=== PATIENT | female | born 1975 | race Caucasian/White ===

== ENCOUNTER 2018-09-27 11:01 | Emergency (ER) | payer OTHER ==
--- NOTE | 2018-09-27 11:27 | ERPHSYRPT ---
- History of Present Illness Time Seen by Provider: 09/27/18 11:22 Source: patient, family Exam Limitations: no limitations Physician History: The patient is a 42-year-old female with her complaining of worsening swelling and pain in her right upper and lower eyelids since Thursday morning or 3 days ago. She denies fever or chills. Her upper eyelid is severely swollen today and tender. She is no longer able to open her eyelid so she can see out of her right eye. She denies any trauma. She does note that there was a small sore on the medial aspect of her right upper eyelid on Thursday. She wears glasses for driving. There is been no discharge or matting of her eyes. The swelling is now progressed into her right cheek and nose. Her past medical history is significant for arthritis and seizure disorder. Timing/Duration: day(s) (3), gradual onset, worse Location: right eye (right eye lids) Severity: severe Apparent Injury: no Associated Symptoms: pain (to eye lids, no eye ball), eyelid swelling, No redness, No matting Visual Assistive Devices: Glasses (for driving) Allergies/Adverse Reactions: lamotrigine [From Lamictal] Allergy (Verified 09/27/18 11:29) Home Medications: Gabapentin 800 mg PO TID 06/28/15 [History] Levetiracetam [Keppra] 1,500 mg PO BID 06/28/15 [History] Meloxicam 15 mg [Meloxicam 15 MG] 15 mg PO DAILY 06/28/15 [History] Propranolol HCl [Propranolol HCl ER] 80 mg PO DAILY 06/28/15 [History] Tizanidine HCl [Zanaflex] 4 mg PO TID PRN 06/28/15 [History] Fentanyl 25Mcg Patch [Duragesic 25MCG Patch] 25 mcg TOP Q3D 11/05/17 [ History] Oxycodone HCl 10 mg PO BID PRN 11/05/17 [History] Duloxetine HCl 120 mg PO DAILY 09/27/18 [History] Eslicarbazepine Acetate [Aptiom] 800 mg PO BID 09/27/18 [History] Frovatriptan Succinate 2.5 mg PO BID PRN 09/27/18 [History] Lisdexamfetamine Dimesylate [Vyvanse] 70 mg PO DAILY 09/27/18 [History] Zonisamide 300 mg PO DAILY 09/27/18 [History] Hx Tetanus, Diphtheria Vaccination/Date Given: No Hx Influenza Vaccination/Date Given: No Hx Pneumococcal Vaccination/Date Given: No - Review of Systems Constitutional: No Fever, No Chills Eyes: Other (swelling of eye lids) Ears, Nose, & Throat: No Symptoms Respiratory: No Cough, No Dyspnea Cardiac: No Chest Pain, No Edema, No Syncope Abdominal/Gastrointestinal: No Abdominal Pain, No Nausea, No Vomiting, No Diarrhea Genitourinary Symptoms: No Dysuria Musculoskeletal: No Back Pain, No Neck Pain Skin: No Rash Neurological: No Dizziness, No Focal Weakness, No Sensory Changes Psychological: No Symptoms Endocrine: No Symptoms Hematologic/Lymphatic: No Symptoms Immunological/Allergic: No Symptoms All Other Systems: Reviewed and Negative - Past Medical History Pertinent Past Medical History: Yes Neurological History: Migraines, Seizures ENT History: No Pertinent History Cardiac History: No Pertinent History Respiratory History: No Pertinent History Endocrine Medical History: No Pertinent History Musculoskeletal History: Arthritis, Degenerative Disk Disease, Other GI Medical History: No Pertinent History History: Other Psycho-Social History: Anxiety, Depression Female Reproductive Disorders: Other Other Medical History: current UTI. Chronic low back pain. no femal reproductive problems since Hysterectomy - Past Surgical History Past Surgical History: Yes Neuro Surgical History: No Pertinent History Cardiac: No Pertinent History Respiratory: No Pertinent History Gastrointestinal: Other Genitourinary: No Pertinent History Musculoskeletal: No Pertinent History Female Surgical History: Section, Hysterectomy Other Surgical History: CARPEL TUNNEL ON RIGHT HAND, FEMALE SURGERIES. gastric bi-pass. - Social History Smoking Status: Never smoker Exposure to second hand smoke: No Drug Use: none Patient Lives Alone: No - Nursing Vital Signs Nursing Vital Signs: Initial Vital Signs Temperature 99.5 F 09/27/18 11:04 Pulse Rate 66 09/27/18 11:04 Blood Pressure 121/62 09/27/18 11:04 O2 Sat by Pulse Oximetry 95 09/27/18 11:04 Pain Scale Pain Intensity 4 - Physical Exam General Appearance: mild distress Eye Exam: right eye: eyelid inflammation (both upper and lower eyelids are warm , very tender, and severely swollen.), other (pt unable to open right eye lid without using her fingers to physically move her upper eyelid. Vision is not blurred when eye lid is opened minimally.), left eye: normal inspection, PERRL, EOMI Ears, Nose, Throat Exam: normal ENT inspection Neck Exam: normal inspection Respiratory Exam: normal breath sounds Cardiovascular Exam: regular rate/rhythm Gastrointestinal Exam: soft Extremity Exam: normal inspection Neurologic: alert Skin Exam: normal color SpO2 Interpretation: normal Oxygen Delivery: Room Air - CT Exams Maxillofacial Bones CT Interpretation: Tele-radiologist Report (per Dr Cuenca), Other (right periorbital soft tussue swelling without suspicious solid/cystic soft tissue mass, fluid collection, or subcutaneous air bubbles.) Ordered Tests: Active Orders 24 hr Category Date Time Status IV Insertion STAT Care 09/27/18 11:31 Active FACIAL BONES WITH CONTRAST [CT] Stat Exams 09/27/18 11:33 Completed BMP Stat Lab 09/27/18 11:43 Completed CBC W DIFF Stat Lab 09/27/18 11:43 Completed Lactic Acid Stat Lab 09/27/18 11:42 Completed Medication Summary Discontinued Medications Generic Name Dose Route Start Last Admin Trade Name Freq PRN Reason Stop Dose Admin Diphenhydramine HCl 25 mg 09/27/18 11:31 09/27/18 12:21 Benadryl 50 Mg/Ml IV 09/27/18 11:32 25 mg STAT ONE Administration Diphenhydramine HCl Confirm 09/27/18 12:07 Benadryl 50 Mg/Ml Administered 09/27/18 12:08 Dose 50 mg .ROUTE .STK-MED ONE Ceftriaxone Sodium/Dextrose 1 g in 50 mls @ 100 mls/hr 09/27/18 11:33 12:21 Rocephin 1 Gm-D5w 50 Ml Bag IV 09/27/18 12:02 100 mls/hr STAT STA 100 mls/hr Administration Ceftriaxone Sodium/Dextrose Confirm 09/27/18 12:07 Rocephin 1 Gm-D5w 50 Ml Bag Administered 09/27/18 12:08 Dose 1 g in 50 mls @ ud IV .STK-MED ONE Morphine Sulfate 4 mg 09/27/18 11:31 09/27/18 12:21 Morphine Sulfate 4 Mg Inj IV 09/27/18 11:32 4 mg STAT ONE Administration Morphine Sulfate Confirm 09/27/18 12:07 Morphine Sulfate 4 Mg Inj Administered 09/27/18 12:08 Dose 4 mg .ROUTE .STK-MED ONE Ondansetron HCl 4 mg 09/27/18 11:32 09/27/18 12:22 Zofran 4 Mg/2 Ml Vial IV 09/27/18 11:33 4 mg STAT ONE Administration Ondansetron HCl Confirm 09/27/18 12:07 Zofran 4 Mg/2 Ml Vial Administered 09/27/18 12:08 Dose 4 mg .ROUTE .STK-MED ONE Lab/Rad Data: Laboratory Result Diagrams 09/27/18 11:43 09/27/18 11:43 Laboratory Results 09/27/18 09/27/18 09/27/18 Range/Units 11:43 11:43 11:42 WBC 8.0 (4.0-10.5) K/mm3 RBC 3.96 L (4.1-5.4) M/mm3 Hgb 12.1 (12.0-16.0) gm/dl Hct 36.5 (35-47) % MCV 92.2 (78-100) fl MCH 30.5 (26-32) pg MCHC 33.2 (32-36) g/dl RDW 13.2 (11.5-14.0) % Plt Count 371 (150-450) K/mm3 MPV 8.8 (6-9.5) fl Gran % 70.5 H (36.0-66.0) % Eos # (Auto) 0.09 (0-0.5) Absolute Lymphs (auto) 1.66 (1.0-4.6) Absolute Monos (auto) 0.59 (0.0-1.3) Lymphocytes % 20.9 L (24.0-44.0) % Monocytes % 7.4 (0.0-12.0) % Eosinophils % 1.1 (0.00-5.0) % Basophils % 0.1 (0.0-0.4) % Absolute Granulocytes 5.60 (1.4-6.9) Basophils # 0.01 (0-0.4) Sodium 138 (137-145) mmol/L Potassium 4.1 (3.5-5.1) mmol/L Chloride 99 (98-107) mmol/L Carbon Dioxide 30 (22-30) mmol/L Anion Gap 13.6 (5-15) MEQ/L BUN 10 (7-17) mg/dL Creatinine 0.72 (0.52-1.04) mg/dL Estimated GFR > 60.0 ML/MIN Glucose 133 H (74-106) mg/dL Lactic Acid 1.2 (0.4-2.0) Calcium 9.4 (8.4-10.2) mg/dL - Progress Progress: improved Progress Note: 09/27/18 12:[address] Shan Dudley, ophthamologist, at [facility] accepts pt for trransfer and evaluation. Counseled pt/family regarding: lab results, diagnosis, need for follow-up, rad results - Departure Time of Disposition: 12:50 Departure Disposition: Home Clinical Impression: Periorbital cellulitis of right eye Condition: Stable Critical Care Time: No Referrals: LINDA LYON [Primary Care Provider] - Additional Instructions: You have periorbital cellulitis of the right eye. You were given Benadryl 25 mg , morphine 4 mg, Zofran 4 mg, and Rocephin 1 g by IV in the ER. You are to see Dr. Shan Dudley at [address] [place] [address] [facility] in [place] immediately after being discharged from the [facility].
[2018-09-27] MEDS ORDERED: MORPHINE SULFATE 4 MG INJ IV ONE (11:31)
[2018-09-27] MEDS ORDERED: BENADRYL 50 MG/ML IV ONE (11:31)
[2018-09-27] MEDS ORDERED: Zofran 4 MG/2 ML VIAL IV ONE (11:32)
[2018-09-27] MEDS ORDERED: ROCEPHIN 1 Gm-D5w 50 ml Bag** 1 G/50 ML IVPB IV STA (11:33)
[2018-09-27 11:46] LABS: BASOPHIL % 0.1 % (0.0-0.4); Basophil (Absolute #) 0.01 (0-0.4); Eosinophil % 1.1 % (0.00-5.0); Eosinophil (Absolute #) 0.09 (0-0.5); Granulocytes % 70.5 % (36.0-66.0); Hematocrit 36.5 % (35-47); Hemoglobin 12.1 gm/dl (12.0-16.0); Lymphocyte (Absolute #) 1.66 (1.0-4.6); Lymphocytes % 20.9 % (24.0-44.0); Mean Cell Volume 92.2 fl (78-100); Mean Corpuscular Hgb Concent. 33.2 g/dl (32-36); Mean Platelet Volume 8.8 fl (6-9.5); Monocyte (Absolute #) 0.59 (0.0-1.3); Monocytes % 7.4 % (0.0-12.0); Platelet Count 371 K/mm3 (150-450); Red Blood Count 3.96 M/mm3 (4.1-5.4); Red Cell Distribution Width 13.2 % (11.5-14.0)
[2018-09-27 11:52] LABS: Mean Corpuscular Hemoglobin 30.5 pg (26-32)
[2018-09-27 12:02] LABS: ANION GAP 13.6 MEQ/L (5-15); BLOOD UREA NITROGEN 10 mg/dL (7-17); CHLORIDE 99 mmol/L (98-107); Calcium 9.4 mg/dL (8.4-10.2); Carbon Dioxide 30 mmol/L (22-30); Creatinine 1 0.72 mg/dL (0.52-1.04); Glucose 133 mg/dL (74-106); Potassium 4.1 mmol/L (3.5-5.1); SODIUM 138 mmol/L (137-145)
[2018-09-27] MEDS ORDERED: BENADRYL 50 MG/ML ONE (12:07)
[2018-09-27] MEDS ORDERED: Zofran 4 MG/2 ML VIAL ONE (12:07)
[2018-09-27] MEDS ORDERED: MORPHINE SULFATE 4 MG INJ ONE (12:07)
[2018-09-27] MEDS ORDERED: ROCEPHIN 1 Gm-D5w 50 ml Bag** 1 G/50 ML IVPB IV ONE (12:07)
--- NOTE | 2018-09-27 12:14 | XRAY ---
Indication: Right eye swelling. Multiple contiguous axial images obtained through the facial bones using 80 cc Isovue 370 contrast. Comparison: None A few left-sided dental amalgams produces beam artifact. There is moderate right periorbital soft tissue swelling without suspicious solid/cystic soft tissue mass, fluid collection, or subcutaneous air bubbles. No acute fracture, suspicious bony lesions, osseous destructive process, or radiopaque foreign body. Orbits including orbital roof, lares, and floors intact. Paranasal sinuses and nasal passages are clear. Mild nasal septal deviation to the right. Parotid gland and submandibular glands bilaterally symmetric. A few centimeter/subcentimeter submandibular lymph nodes bilaterally. No pathologic lymphadenopathy. Remaining surrounding soft tissues and base of the brain unremarkable. Impression: 1. Right periorbital soft tissue swelling presumed inflammatory/infectious. 2. Remaining CT facial bones with contrast exam negative. CTDI 59.47
[2018-09-27 13:08] VITALS: BP 116/58; PULSE 58; O2SAT 97
== END 2018-09-27 13:09 | disposition home or self-care (01) ==
LOC: ED 11:01
DX: L03.213 Periorbital cellulitis (principal); Z79.899 Other long term (current) drug therapy
CPT/HCPCS: 36000; 36415; 70487; 80048; 83605; 85025; 96365; 96374; 96375; 99284; J0696; J1200; J2270; J2405

== ENCOUNTER 2019-12-07 12:49 | Emergency (ER) | payer OTHER ==
[2019-12-07] MEDS ORDERED: Sodium Chloride 0.9% 1000 ML 1,000 ML IV STA (13:23)
--- NOTE | 2019-12-07 13:34 | ERPHSYRPT ---
- History of Present Illness Time Seen by Provider: 12/07/19 13:22 Source: patient Exam Limitations: no limitations Patient Subjective Stated Complaint: seizure Physician History: Patient is a 44-year-old female presents to our ED with complaints of progressively increasing seizures. Patient followed up with her neurologist last week. An EEG was performed. Since her visit with her neurologist she has had 2 additional seizures. Patient states she feels as though time was going backwards. She experienced tingling of her cheeks and her fingertips. The seizure was not witnessed. No tongue biting or injury to tongue observed. No incontinence. Symptoms are intermittent. No specific worsening or improving factors. Of note while performing our physical exam patient was noted to be bradycardic on the supervisor wrapping room at a rate of 47. Beats per minute. Patient is on a beta-ivelisse. Patient states that she has been losing weight intentionally. There is a possibility that the beta-ivelisse dose may need to be adjusted. Timing/Duration: today Severity: moderate Character of Deficits: altered sensation Deficits: no difficulties Baseline/Normal Cognition: alert oriented x 3 Current Cognition: alert oriented x 3 Associated Symptoms: confusion, numbness/tingling in legs/feet, paresthesia, No nausea, No vomiting, No weakness, No insomnia, No muscle spasms, No headache, No other Allergies/Adverse Reactions: lamotrigine [From Lamictal] Allergy (Verified 12/07/19 13:27) Home Medications: Gabapentin 800 mg PO TID 06/28/15 [History] Levetiracetam [Keppra] 1,000 mg PO TID 06/28/15 [History] Meloxicam 15 mg [Meloxicam 15 MG] 15 mg PO DAILY 06/28/15 [History] Propranolol HCl [Propranolol HCl ER] 120 mg PO DAILY 06/28/15 [History] Eslicarbazepine Acetate [Aptiom] 800 mg PO BID 09/27/18 [History] Baclofen 20 mg PO TID 12/07/19 [History] Buprenorphine HCl [Belbuca] 450 mg PO BID 12/07/19 [History] Desvenlafaxine Succinate [Pristiq ER] 50 mg PO DAILY 12/07/19 [History] Dexmethylphenidate HCl [Dexmethylphenidate HCl ER] 40 mg PO DAILY 12/07/19 [ History] Dexmethylphenidate HCl [Focalin] 15 mg PO DAILY 12/07/19 [History] Ergocalciferol (Vitamin D2) [Vitamin D2] 50,000 units PO WEEKLY 12/07/19 [ History] Hydrocodone Bit/Acetaminophen [Hydrocodon-Acetaminophn 10-325] 1 each PO UD PRN 12/07/19 [History] Levothyroxine Sodium [Euthyrox] 25 mcg PO DAILY 12/07/19 [History] Naratriptan HCl [Amerge] 2.5 mg PO UD PRN 12/07/19 [History] Hx Tetanus, Diphtheria Vaccination/Date Given: No Hx Influenza Vaccination/Date Given: No Hx Pneumococcal Vaccination/Date Given: No - Review of Systems Constitutional: No Fever, No Chills Eyes: No Symptoms Ears, Nose, & Throat: No Symptoms Respiratory: No Symptoms, No Cough, No Dyspnea Cardiac: No Chest Pain, No Edema, No Syncope Abdominal/Gastrointestinal: No Symptoms, No Abdominal Pain, No Nausea, No Vomiting, No Diarrhea Genitourinary Symptoms: No Symptoms, No Dysuria Musculoskeletal: No Symptoms, No Back Pain, No Neck Pain Skin: No Symptoms, No Rash Neurological: Seizure, No Dizziness, No Focal Weakness, No Paralysis, No Sensory Changes, No Vertigo Psychological: No Symptoms Endocrine: No Symptoms All Other Systems: Reviewed and Negative - Past Medical History Pertinent Past Medical History: Yes Neurological History: Migraines, Seizures ENT History: No Pertinent History Cardiac History: No Pertinent History Respiratory History: No Pertinent History Endocrine Medical History: No Pertinent History Musculoskeletal History: Arthritis, Degenerative Disk Disease, Other GI Medical History: No Pertinent History History: Other Psycho-Social History: Anxiety, Depression Female Reproductive Disorders: Other Other Medical History: current UTI. Chronic low back pain. no femal reproductive problems since Hysterectomy - Past Surgical History Past Surgical History: Yes Neuro Surgical History: No Pertinent History Cardiac: No Pertinent History Respiratory: No Pertinent History Gastrointestinal: Other Genitourinary: No Pertinent History Musculoskeletal: No Pertinent History Female Surgical History: Section, Hysterectomy Other Surgical History: CARPEL TUNNEL ON RIGHT HAND, FEMALE SURGERIES. gastric bi-pass. - Social History Smoking Status: Never smoker Exposure to second hand smoke: No Drug Use: none Patient Lives Alone: No - Nursing Vital Signs Nursing Vital Signs: Initial Vital Signs Temperature 97.9 F 12/07/19 13:06 Pulse Rate 53 L 12/07/19 13:06 Respiratory Rate 12 12/07/19 13:06 Blood Pressure 107/69 12/07/19 13:06 O2 Sat by Pulse Oximetry 100 12/07/19 13:06 Pain Scale Pain Intensity 0 - [place] Coma Scale Best Eye Response ([place]): (4) open spontaneously Best Verbal Response ([place]): (5) oriented Best Motor Response ([place]): (6) obeys commands [place] Total: 15 - Physical Exam General Appearance: no apparent distress, alert Eye Exam: bilateral eye: PERRL, EOMI Ears, Nose, Throat Exam: normal ENT inspection, moist mucous membranes Neck Exam: normal inspection, non-tender, supple Respiratory: normal breath sounds, lungs clear, airway intact, No respiratory distress Cardiovascular: regular rate/rhythm, No edema Gastrointestinal: soft, No tenderness, No distention Back Exam: normal inspection Extremity Exam: normal inspection, No pedal edema Mental Status: alert, oriented x 3 folder seamer automatic Exam: normal hearing, normal speech, PERRL, tongue midline, No abnormal eye position Coordination/Gait: normal finger to nose, normal gait Motor/Sensory: No no motor deficit, No no sensory deficit, No no pronator drift , No negative Babinski's sign, No weak motor strength RUE Skin Exam: normal color, warm, dry, No rash SpO2 Interpretation: normal SpO2: 99 O2 Delivery: Room Air - Course Nursing assessment & vital signs reviewed: Yes EKG Interpreted by Me: RATE, Sinus Rhythm, Sinus [place], NORMAL AXIS, NORMAL INTERVALS - CT Exams Head CT Interpretation: Negative, Tele-radiologist Report Ordered Tests: Active Orders 24 hr Category Date Time Status Accucheck STAT Care 12/07/19 13:23 Active Label Maker STAT Care 12/07/19 13:25 Active Clean Catch Urine Specimen STAT Care 12/07/19 13:23 Active EKG-ER Only STAT Care 12/07/19 13:23 Active IV Insertion STAT Care 12/07/19 13:23 Active Pulse Oximetry (ED) STAT Care 12/07/19 13:23 Active Seizure Precautions -SCCHED STAT Care 12/07/19 13:23 Active HEAD WITHOUT CONTRAST [CT] Stat Exams 12/07/19 13:24 Completed CBC W DIFF Stat Lab 12/07/19 Completed CMP Stat Lab 12/07/19 13:23 Completed CULTURE,URINE Stat Lab 12/07/19 14:15 Received CULTURE,URINE Stat Lab 12/07/19 14:15 Received HCG,QUALITATIVE URINE Stat Lab 12/07/19 14:15 Completed MAGNESIUM Stat Lab 12/07/19 13:23 Completed UA W/RFX UR CULTURE Stat Lab 12/07/19 14:15 Completed Urine Triage Profile Stat Lab 12/07/19 14:15 Completed Medication Summary Discontinued Medications Generic Name Dose Route Start Last Admin Trade Name Bayronq PRN Reason Stop Dose Admin Sodium Chloride 1,000 mls @ 999 mls/hr 12/07/19 13:23 12/07/19 14:03 Sodium Chloride 0.9% 1000 Ml IV 12/07/19 14:23 999 mls/hr .Q1H1M STA Administration Sodium Chloride Confirm 12/07/19 14:02 Sodium Chloride 0.9% 1000 Ml Administered 12/07/19 14:03 Dose 1,000 mls @ ud .ROUTE .STK-MED ONE Lab/Rad Data: Laboratory Result Diagrams 12/07/19 Unknown 12/07/19 13:23 Laboratory Results 12/07/19 12/07/19 12/07/19 Range/Units Unknown 14:15 14:15 WBC 9.1 (4.0-10.5) K/mm3 RBC 4.33 (4.1-5.4) M/mm3 Hgb 12.9 (12.0-16.0) gm/dl Hct 39.2 (35-47) % MCV 90.5 (78-100) fl MCH 29.8 (26-32) pg MCHC 32.9 (32-36) g/dl RDW 13.7 (11.5-14.0) % Plt Count 396 (150-450) K/mm3 MPV 8.9 (7.5-11.0) fl Gran % 73.1 H (36.0-66.0) % Eos # (Auto) 0.27 (0-0.5) Absolute Lymphs (auto) 1.66 (1.0-4.6) Absolute Monos (auto) 0.48 (0.0-1.3) Lymphocytes % 18.3 L (24.0-44.0) % Monocytes % 5.3 (0.0-12.0) % Eosinophils % 3.0 (0.00-5.0) % Basophils % 0.3 (0.0-0.4) % Absolute Granulocytes 6.64 (1.4-6.9) Basophils # 0.03 (0-0.4) Sodium (137-145) mmol/L Potassium (3.5-5.1) mmol/L Chloride (98-107) mmol/L Carbon Dioxide (22-30) mmol/L Anion Gap (5-15) MEQ/L BUN (7-17) mg/dL Creatinine (0.52-1.04) mg/dL Estimated GFR ML/MIN Glucose (74-106) mg/dL Calcium (8.4-10.2) mg/dL Magnesium (1.6-2.3) mg/dL Total Bilirubin (0.2-1.3) mg/dL AST (14-36) U/L ALT (0-35) U/L Alkaline Phosphatase (38-126) U/L Serum Total Protein (6.3-8.2) g/dL Albumin (3.5-5.0) g/dL Urine Color YELLOW (YELLOW) Urine Appearance CLOUDY (CLEAR) Urine pH 5.0 (5-6) Ur Specific [place] 1.039 (1.005-1.025) Urine Protein 30 (Negative) Urine Ketones TRACE (NEGATIVE) Urine Blood NEGATIVE (0-5) Rick/ul Urine Nitrite NEGATIVE (NEGATIVE) Urine Bilirubin NEGATIVE (NEGATIVE) Urine Urobilinogen NEGATIVE (0-1) mg/dL Ur Leukocyte Esterase LARGE (NEGATIVE) Urine WBC (Auto) 26-50 (0-5) /HPF Urine RBC (Auto) 6-10 (0-2) /HPF U Hyaline Cast (Auto) 3-5 (0-2) /LPF U Epithel Cells (Auto) RARE (FEW) /HPF Urine Bacteria (Auto) RARE (NEGATIVE) /HPF U Non-Squamous Epi Cells RARE (FEW) /HPF Calcium Oxalate Crystal 51-99 (NEGATIVE) /HPF Urine Mucus (Auto) SLIGHT (NEGATIVE) /HPF Urine Culture Reflexed YES (NO) Urine Glucose NEGATIVE (NEGATIVE) mg/dL Urine HCG, Qual (Negative) Urine Opiates Level NEGATIVE (NEGATIVE) Ur Methadone NEGATIVE (NEGATIVE) Urine Barbiturates NEGATIVE (NEGATIVE) Ur Phencyclidine (PCP) NEGATIVE (NEGATIVE) Urine Amphetamine POSITIVE (NEGATIVE) U Benzodiazepine Level NEGATIVE (NEGATIVE) Urine Cocaine NEGATIVE (NEGATIVE) Urine Marijuana (THC) NEGATIVE (NEGATIVE) 12/07/19 12/07/19 Range/Units 14:15 13:23 WBC (4.0-10.5) K/mm3 RBC (4.1-5.4) M/mm3 Hgb (12.0-16.0) gm/dl Hct (35-47) % MCV (78-100) fl MCH (26-32) pg MCHC (32-36) g/dl RDW (11.5-14.0) % Plt Count (150-450) K/mm3 MPV (7.5-11.0) fl Gran % (36.0-66.0) % Eos # (Auto) (0-0.5) Absolute Lymphs (auto) (1.0-4.6) Absolute Monos (auto) (0.0-1.3) Lymphocytes % (24.0-44.0) % Monocytes % (0.0-12.0) % Eosinophils % (0.00-5.0) % Basophils % (0.0-0.4) % Absolute Granulocytes (1.4-6.9) Basophils # (0-0.4) Sodium 137 (137-145) mmol/L Potassium 4.1 (3.5-5.1) mmol/L Chloride 101 (98-107) mmol/L Carbon Dioxide 27 (22-30) mmol/L Anion Gap 13.6 (5-15) MEQ/L BUN 13 (7-17) mg/dL Creatinine 0.67 (0.52-1.04) mg/dL Estimated GFR > 60.0 ML/MIN Glucose 80 (74-106) mg/dL Calcium 9.0 (8.4-10.2) mg/dL Magnesium 2.0 (1.6-2.3) mg/dL Total Bilirubin 0.20 (0.2-1.3) mg/dL AST 26 (14-36) U/L ALT 26 (0-35) U/L Alkaline Phosphatase 133 H (38-126) U/L Serum Total Protein 7.5 (6.3-8.2) g/dL Albumin 4.4 (3.5-5.0) g/dL Urine Color (YELLOW) Urine Appearance (CLEAR) Urine pH (5-6) Ur Specific [place] (1.005-1.025) Urine Protein (Negative) Urine Ketones (NEGATIVE) Urine Blood (0-5) Rick/ul Urine Nitrite (NEGATIVE) Urine Bilirubin (NEGATIVE) Urine Urobilinogen (0-1) mg/dL Ur Leukocyte Esterase (NEGATIVE) Urine WBC (Auto) (0-5) /HPF Urine RBC (Auto) (0-2) /HPF U Hyaline Cast (Auto) (0-2) /LPF U Epithel Cells (Auto) (FEW) /HPF Urine Bacteria (Auto) (NEGATIVE) /HPF U Non-Squamous Epi Cells (FEW) /HPF Calcium Oxalate Crystal (NEGATIVE) /HPF Urine Mucus (Auto) (NEGATIVE) /HPF Urine Culture Reflexed (NO) Urine Glucose (NEGATIVE) mg/dL Urine HCG, Qual NEGATIVE (Negative) Urine Opiates Level (NEGATIVE) Ur Methadone (NEGATIVE) Urine Barbiturates (NEGATIVE) Ur Phencyclidine (PCP) (NEGATIVE) Urine Amphetamine (NEGATIVE) U Benzodiazepine Level (NEGATIVE) Urine Cocaine (NEGATIVE) Urine Marijuana (THC) (NEGATIVE) - Progress Progress: improved Discussed with Dr.: Other (Case discussed with Dr. Hilaria Barger, patients neurologist. He advises treating the UTI as this could potentially decrease seizure threshold. Patient is also on propranolol which may be contributing to her bradycardia. We will decrease her propranolol from 120 mg daily to 80 mg daily. Patient advised of this change. She will make that change accordingly. Patient is on an amphetamine-like medication. He will see patient on an outpatient basis and make medication adjustments.) Will see patient in: office Counseled pt/family regarding: drug and/or alcohol abuse, lab results, diagnosis , need for follow-up, rad results - Departure Departure Disposition: Home Clinical Impression: Bradycardia, Seizure, UTI (urinary tract infection) Condition: Good Critical Care Time: No Referrals: LINDA LYON [Primary Care Provider] - Additional Instructions: Decrease your propranolol dose from 120 mg daily to [address] Barger Discharge/Care Plan ELVIRA VACA was seen on 12/07/19 in the Emergency Room. The patient was counseled regarding Diagnosis,Lab results, Imaging studies, need for follow up and when to return to the Emergency Room. Prescriptions given: Discharge Note I have spoken with the patient and/or caregivers. I have explained the patient' s condition, diagnosis and treatment plan based on the information available to me at this time. I have answered the patient's and/or caregiver's questions and addressed any concerns. The patient and/or caregivers have as good understanding of the patient's diagnosis, condition and treatment plan as can be expected at this point. The vital signs have been stable. The patient's condition is stable and appropriate for discharge from the emergency department. The patient will pursue further outpatient evaluation with the primary care physician or other designated or consulting physician as outlined in the discharge instructions. The patient and/or caregivers are agreeable to this plan of care and follow-up instructions have been explained in detail. The patient and/or caregivers have received these instruction. The patient/and or caregivers are aware that any significant change in condition or worsening of symptoms should prompt an immediate return to this or the closest emergency department or call 911. Prescriptions: Cephalexin Mh 500 mg [Keflex 500 mg] 500 mg PO BID 7 Days #14 capsule
[2019-12-07] MEDS ORDERED: Sodium Chloride 0.9% 1000 ML 1,000 ML ONE (14:02)
--- NOTE | 2019-12-07 14:04 | XRAY ---
Indication: Seizures. History seizures since 2013. Multiple contiguous axial images obtained through the head without contrast. Comparison: None Normal appearing brain parenchyma, ventricles, and bony calvarium. Visualized paranasal sinuses and mastoid air cells are clear. Impression: Normal CT head without contrast exam.
[2019-12-07 14:28] LABS: Absolute Neutrophil Ct (ANC) 6.64 (1.4-6.9); BASOPHIL % 0.3 % (0.0-0.4); Basophil (Absolute #) 0.03 (0-0.4); Eosinophil (Absolute #) 0.27 (0-0.5); Hematocrit 39.2 % (35-47); Hemoglobin 12.9 gm/dl (12.0-16.0); Lymphocyte (Absolute #) 1.66 (1.0-4.6); Lymphocytes % 18.3 % (24.0-44.0); Mean Cell Volume 90.5 fl (78-100); Mean Corpuscular Hemoglobin 29.8 pg (26-32); Mean Corpuscular Hgb Concent. 32.9 g/dl (32-36); Mean Platelet Volume 8.9 fl (7.5-11.0); Monocyte (Absolute #) 0.48 (0.0-1.3); Monocytes % 5.3 % (0.0-12.0); Neutrophil % 73.1 % (36.0-66.0); Platelet Count 396 K/mm3 (150-450); Red Blood Count 4.33 M/mm3 (4.1-5.4); Red Cell Distribution Width 13.7 % (11.5-14.0); White Blood Count 9.1 K/mm3 (4.0-10.5)
[2019-12-07 14:38] VITALS: BP 118/59; PULSE 52
[2019-12-07 14:40] LABS: ALBUMIN 4.4 g/dL (3.5-5.0); ALKALINE PHOSPHATASE 133 U/L (38-126); ANION GAP 13.6 MEQ/L (5-15); BLOOD UREA NITROGEN 13 mg/dL (7-17); CHLORIDE 101 mmol/L (98-107); Carbon Dioxide 27 mmol/L (22-30); Creatinine 1 0.67 mg/dL (0.52-1.04); Glucose 80 mg/dL (74-106); Potassium 4.1 mmol/L (3.5-5.1); SGOT/AST 26 U/L (14-36); SGPT/ALT 26 U/L (0-35); SODIUM 137 mmol/L (137-145); Total Protein 7.5 g/dL (6.3-8.2)
[2019-12-07 14:44] LABS: Appearance CLOUDY (CLEAR); Bacteria RARE /HPF (NEGATIVE); Bilirubin NEGATIVE (NEGATIVE); Blood NEGATIVE Ery/ul (0-5); Epithelial Cells RARE /HPF (FEW); Glucose NEGATIVE (NEGATIVE); Ketones TRACE (NEGATIVE); Leukocyte Esterase LARGE (NEGATIVE); Mucus SLIGHT /HPF (NEGATIVE); Nitrite NEGATIVE (NEGATIVE); Non-Squamous Epithelial Cells RARE /HPF (FEW); Protein,Urine Dip 30 (Negative); Specific Gravity 1.039 (1.005-1.025); Urobilinogen NEGATIVE mg/dL (0-1); WBC 26-50 /HPF (0-5)
[2019-12-07 14:51] LABS: Amphetamine,Urine POSITIVE (NEGATIVE); Barbiturate,Urine NEGATIVE (NEGATIVE); Benzodiazepine,Urine NEGATIVE (NEGATIVE); Cocaine,Urine NEGATIVE (NEGATIVE); Methadone,Urine NEGATIVE (NEGATIVE); Opiate,Urine NEGATIVE (NEGATIVE); PCP,Urine NEGATIVE (NEGATIVE); THC,Urine NEGATIVE (NEGATIVE)
[2019-12-07] MEDS ORDERED: ROCEPHIN 1 Gm-D5w 50 ml Bag** 1 G/50 ML IVPB IV STA (14:57)
[2019-12-07] MEDS ORDERED: ROCEPHIN 1 Gm-D5w 50 ml Bag** 1 G/50 ML IVPB IV ONE (14:59)
[2019-12-07 15:01] VITALS: O2SAT 99
== END 2019-12-07 15:21 | disposition home or self-care (01) ==
LOC: ED 12:49
DX: R00.1 Bradycardia, unspecified (principal); R56.9 Unspecified convulsions; N39.0 Urinary tract infection, site not specified
CPT/HCPCS: 36000; 36415; 70450; 80053; 80177; 80307; 81001; 82962; 83735; 84703; 85025; 87086; 93005; 93041; 94760; 96360; 96365; 99284; J0696

== ENCOUNTER 2020-03-28 10:10 | Day surgery (SDC) | payer OTHER ==
[2020-03-28] MEDS ORDERED: Depo-Medrol 40 MG/ML IM ONE (10:11)
[2020-03-28] MEDS ORDERED: Sodium Chloride 0.9(Preservative Free) 10 ML IJ ONE (10:11)
[2020-03-28] MEDS ORDERED: Xylocaine 1% Vial 30 ML PF IJ ONE (10:11)
[2020-03-28] MEDS ORDERED: Ketamine HCl 50 MG/ML ONE (11:39)
[2020-03-28] MEDS ORDERED: DIPRIVAN 200 MG/20 ML IV ONE (11:39)
[2020-03-28] MEDS ORDERED: Lactated Ringers 1,000 ML IV ONE (12:37)
--- NOTE | 2020-03-28 14:05 | XRAY ---
Indication: Lumbar ROSARIO. Intraoperative fluoroscopy was provided for 20 seconds. 2 digital spot images submitted for interpretation demonstrates midline posterior needle tip projecting just posterior to the lumbosacral junction interspace. Small amount of contrast injected for needle tip placement. Correlate with intraoperative findings/report.
--- NOTE | 2020-03-28 14:11 | XRAY ---
20 seconds fluoroscopy time in surgery for lumbar ROSARIO.
== END 2020-03-28 12:05 | disposition home or self-care (01) ==
LOC: SDC-PAIN 10:10
PROVIDERS: ATTEND Psychiatry & Neurology Pain Medicine
DX: M54.16 Radiculopathy, lumbar region (principal); M06.9 Rheumatoid arthritis, unspecified; K21.9 Gastro-esophageal reflux disease without esophagitis; D64.9 Anemia, unspecified; F41.8 Other specified anxiety disorders; M79.7 Fibromyalgia; R56.9 Unspecified convulsions; F90.9 Attention-deficit hyperactivity disorder, unspecified type; Z79.899 Other long term (current) drug therapy
CPT/HCPCS: 62323; 72100; 77003; J1030; J2001; J2704; Q9966

== ENCOUNTER 2020-05-09 10:48 | Day surgery (SDC) | payer OTHER ==
[2020-05-09] MEDS ORDERED: Depo-Medrol 40 MG/ML IM ONE (10:49)
[2020-05-09] MEDS ORDERED: LIDOCAINE HCL 2% 100 MG/5 ML IJ ONE (10:49)
[2020-05-09] MEDS ORDERED: Ketamine HCl 50 MG/ML ONE (12:03)
[2020-05-09] MEDS ORDERED: DIPRIVAN 200 MG/20 ML IV ONE (12:03)
--- NOTE | 2020-05-09 13:53 | XRAY ---
9 seconds fluoroscopy time in surgery for left L3-S1 MBB.
--- NOTE | 2020-05-09 13:53 | XRAY ---
Indication: Left L3-S1 MBB. Intraoperative fluoroscopy was provided for 9 seconds. Single digital spot image submitted for interpretation demonstrates posterior needle tips projecting over the expected course of the left L3-S1 nerve roots. Correlate with intraoperative findings/report.
[2020-05-09] MEDS ORDERED: Lactated Ringers 1,000 ML IV ONE (15:50)
== END 2020-05-09 12:30 | disposition home or self-care (01) ==
LOC: SDC-PAIN 10:48
PROVIDERS: ATTEND Psychiatry & Neurology Pain Medicine
DX: M47.816 Spondylosis without myelopathy or radiculopathy, lumbar region (principal); M06.9 Rheumatoid arthritis, unspecified; F90.9 Attention-deficit hyperactivity disorder, unspecified type; K21.9 Gastro-esophageal reflux disease without esophagitis; D64.9 Anemia, unspecified; F41.8 Other specified anxiety disorders; R56.9 Unspecified convulsions; Z79.899 Other long term (current) drug therapy
CPT/HCPCS: 64493; 64494; 64495; 72020; 77002; J1030; J2704

== ENCOUNTER 2020-07-04 12:59 | Day surgery (SDC) | payer OTHER ==
[~2020-07-04 12:59] MED LIST: DIPRIVAN 200 MG/20 ML IV ONE; Ketamine HCl 50 MG/ML ONE
[2020-07-04] MEDS ORDERED: Sodium Chloride 0.9(Preservative Free) 10 ML IJ ONE (13:00)
[2020-07-04] MEDS ORDERED: Depo-Medrol 40 MG/ML IM ONE (13:00)
--- NOTE | 2020-07-04 14:46 | XRAY ---
Indication: Right L4-S1 transforaminal ROSARIO. Intraoperative fluoroscopy was provided for 36 seconds. 4 digital spot images submitted for interpretation demonstrates posterior needle tips projecting over the expected right L4 and L5 nerve roots. Small amount of contrast injected for needle tip placement. Correlate with intraoperative findings/report.
--- NOTE | 2020-07-04 15:08 | XRAY ---
36 seconds fluoroscopy time in surgery for right L4-S1 transforaminal ROSARIO.
[2020-07-04] MEDS ORDERED: Lactated Ringers 1,000 ML IV ONE (15:12)
== END 2020-07-04 14:27 | disposition home or self-care (01) ==
LOC: SDC-PAIN 12:59
PROVIDERS: ATTEND Psychiatry & Neurology Pain Medicine
DX: M54.16 Radiculopathy, lumbar region (principal); R56.9 Unspecified convulsions; M06.9 Rheumatoid arthritis, unspecified; K21.9 Gastro-esophageal reflux disease without esophagitis; D64.9 Anemia, unspecified; F41.8 Other specified anxiety disorders; M79.7 Fibromyalgia; Z79.899 Other long term (current) drug therapy
CPT/HCPCS: 64483; 64484; 72100; 77003; J1030; J2704; Q9966

== ENCOUNTER 2020-08-08 09:59 | Day surgery (SDC) | payer OTHER ==
[2020-08-08] MEDS ORDERED: Depo-Medrol 40 MG/ML IM ONE (10:00)
[2020-08-08] MEDS ORDERED: Xylocaine 1% Vial 30 ML PF IJ ONE (10:00)
[2020-08-08] MEDS ORDERED: Decadron 4 MG INJ IV ONE (10:00)
[2020-08-08] MEDS ORDERED: BUPIVACAINE 0.5% VIAL IJ ONE (10:00)
--- NOTE | 2020-08-08 12:57 | XRAY ---
Indication: Right hip injection. Intraoperative fluoroscopy was provided for 10 seconds. Single digital spot image obtained prone submitted for interpretation demonstrates needle tip just lateral to the right greater trochanter. Small amount of contrast injected for needle tip placement. Correlate with intraoperative findings/report.
--- NOTE | 2020-08-08 12:57 | XRAY ---
Indication: Right piriformis injection. Intraoperative fluoroscopy was provided for 12 seconds. Single digital spot image obtained prone submitted for interpretation demonstrates needle tip projecting over the expected right piriformis muscle. Small amount of contrast injected for needle tip placement. Correlate with intraoperative findings/report.
[2020-08-08] MEDS ORDERED: Lactated Ringers 1,000 ML IV ONE (15:58)
--- NOTE | 2020-08-08 16:27 | XRAY ---
10 seconds fluoroscopy time in surgery for right greater trochanteric injection.
--- NOTE | 2020-08-08 16:27 | XRAY ---
12 seconds fluoroscopy time in surgery for right piriformis muscle injection.
== END 2020-08-08 12:45 | disposition home or self-care (01) ==
LOC: SDC-PAIN 09:59
PROVIDERS: ATTEND Psychiatry & Neurology Pain Medicine
DX: M70.61 Trochanteric bursitis, right hip (principal); M60.9 Myositis, unspecified; M06.9 Rheumatoid arthritis, unspecified; R56.9 Unspecified convulsions; K21.9 Gastro-esophageal reflux disease without esophagitis; D64.9 Anemia, unspecified; F41.8 Other specified anxiety disorders; M79.7 Fibromyalgia; F90.9 Attention-deficit hyperactivity disorder, unspecified type
CPT/HCPCS: 64490; 64495; 72020; 73501; 77002; J1030; J1100; J2001; J2704; Q9966

== ENCOUNTER 2020-11-14 09:52 | Day surgery (SDC) | payer OTHER ==
[2020-11-14] MEDS ORDERED: BUPIVACAINE 0.5% VIAL IJ ONE (09:53)
[2020-11-14] MEDS ORDERED: Depo-Medrol 40 MG/ML IM ONE (09:53)
[2020-11-14] MEDS ORDERED: DIPRIVAN 200 MG/20 ML IV ONE (11:11)
[2020-11-14] MEDS ORDERED: Ketamine HCl 50 MG/ML ONE (11:11)
--- NOTE | 2020-11-14 13:20 | XRAY ---
Indication: Left L3-S1 MBB. Intraoperative fluoroscopy was provided for 17 seconds. Single digital spot image submitted for interpretation demonstrates posterior needle tips projecting over the expected left L3-S1 nerve roots. Correlate with intraoperative findings/report.
--- NOTE | 2020-11-14 13:37 | XRAY ---
17 seconds of fluoroscopy was used in surgery for a left L3-L4, L4-L5, and L5-S1 MBB.
[2020-11-14] MEDS ORDERED: Lactated Ringers 1,000 ML IV ONE (15:00)
== END 2020-11-14 11:34 | disposition home or self-care (01) ==
LOC: SDC-PAIN 09:52
PROVIDERS: ATTEND Psychiatry & Neurology Pain Medicine
DX: M47.816 Spondylosis without myelopathy or radiculopathy, lumbar region (principal); M06.9 Rheumatoid arthritis, unspecified; R56.9 Unspecified convulsions; K21.9 Gastro-esophageal reflux disease without esophagitis; D64.9 Anemia, unspecified; F41.8 Other specified anxiety disorders; M79.7 Fibromyalgia
CPT/HCPCS: 64493; 64494; 64495; 72020; 77002; J1030; J2704

== ENCOUNTER 2021-04-24 12:51 | Day surgery (SDC) | payer BC, OTHER ==
[2021-04-24] MEDS ORDERED: LIDOCAINE HCL 2% 100 MG/5 ML IJ ONE (12:52)
--- NOTE | 2021-04-24 15:17 | XRAY ---
24 seconds fluoroscopy time in surgery for right L3-S1 MBB.
--- NOTE | 2021-04-24 15:27 | XRAY ---
Indication: Right L3-S1 MBB. Intraoperative fluoroscopy provided for 24 seconds. Single digital spot image submitted for interpretation demonstrates posterior needle tips projecting over the expected right L3-S1 nerve roots. Correlate with intraoperative findings/report.
[2021-04-24] MEDS ORDERED: Lactated Ringers 1,000 ML IV ONE (15:34)
== END 2021-04-24 14:36 | disposition home or self-care (01) ==
LOC: SDC-PAIN 12:51
PROVIDERS: ATTEND Psychiatry & Neurology Pain Medicine
DX: M47.816 Spondylosis without myelopathy or radiculopathy, lumbar region (principal); D64.9 Anemia, unspecified; F41.9 Anxiety disorder, unspecified; F32.9 Major depressive disorder, single episode, unspecified; K21.9 Gastro-esophageal reflux disease without esophagitis; M79.7 Fibromyalgia; Z79.899 Other long term (current) drug therapy
CPT/HCPCS: 64493; 64494; 64495; 72020; 77002

== ENCOUNTER 2021-06-19 14:28 | Day surgery (SDC) | payer BC, OTHER ==
[2021-06-19] MEDS ORDERED: Xylocaine 1% Vial 30 ML PF IJ ONE (14:29)
[2021-06-19] MEDS ORDERED: Depo-Medrol 40 MG/ML IM ONE (14:29)
[2021-06-19] MEDS ORDERED: BUPIVACAINE 0.5% VIAL IJ ONE (14:29)
[2021-06-19] MEDS ORDERED: DIPRIVAN 200 MG/20 ML IV ONE (15:43)
[2021-06-19] MEDS ORDERED: Ketamine HCl 50 MG/ML ONE (15:43)
[2021-06-19] MEDS ORDERED: Lactated Ringers 1,000 ML IV ONE (15:51)
--- NOTE | 2021-06-19 17:19 | XRAY ---
Indication: Left L3-S1 RFA. Interpreted fluoroscopy provided for 21 seconds. 4 digital spot images submitted for interpretation demonstrates posterior needle tips projecting over the expected left L3-S1 nerve roots. Correlate with intraoperative findings/report.
--- NOTE | 2021-06-19 17:21 | XRAY ---
21 seconds of fluoroscopy was used in surgery for a left L3-S1 RFA.
== END 2021-06-19 16:13 | disposition home or self-care (01) ==
LOC: SDC-PAIN 14:28
PROVIDERS: ATTEND Psychiatry & Neurology Pain Medicine
DX: M47.816 Spondylosis without myelopathy or radiculopathy, lumbar region (principal); Z79.899 Other long term (current) drug therapy
CPT/HCPCS: 64635; 64636; 72100; 77002; J1030; J2001; J2704

== ENCOUNTER 2021-08-14 12:01 | Day surgery (SDC) | payer BC, OTHER ==
[2021-08-14] MEDS ORDERED: BUPIVACAINE 0.5% VIAL IJ ONE (12:02)
[2021-08-14] MEDS ORDERED: DIPRIVAN 200 MG/20 ML IV ONE (13:13)
--- NOTE | 2021-08-14 14:10 | XRAY ---
Indication: Right L3-S1 MBB. Intraoperative fluoroscopy provided for 14 seconds. Single digital spot image submitted for interpretation demonstrates posterior needle tips projecting over the expected right L3-S1 nerve roots. Correlate with intraoperative findings/report.
--- NOTE | 2021-08-14 14:23 | XRAY ---
14 seconds fluoroscopy was used in surgery for a right L3-S1 MBB.
[2021-08-14] MEDS ORDERED: Lactated Ringers 1,000 ML IV ONE (16:29)
== END 2021-08-14 13:39 | disposition home or self-care (01) ==
LOC: SDC-PAIN 12:01
PROVIDERS: ATTEND Psychiatry & Neurology Pain Medicine
DX: M47.816 Spondylosis without myelopathy or radiculopathy, lumbar region (principal); Z79.899 Other long term (current) drug therapy
CPT/HCPCS: 64493; 64494; 64495; 72020; 77002; J2704

== ENCOUNTER 2022-01-01 14:08 | Day surgery (SDC) | payer BC, OTHER ==
[2022-01-01] MEDS ORDERED: Depo-Medrol 40 MG/ML IM ONE (16:00)
[2022-01-01] MEDS ORDERED: BUPIVACAINE 0.5% VIAL IJ ONE (16:00)
[2022-01-01] MEDS ORDERED: Lactated Ringers 1,000 ML IV ONE (16:15)
[2022-01-01] MEDS ORDERED: DIPRIVAN 200 MG/20 ML IV ONE (16:39)
--- NOTE | 2022-01-01 20:41 | XRAY ---
Indication: Bilateral SI joint injection. Intraoperative fluoroscopy provided for 22 seconds. 4 digital spot image submitted for interpretation demonstrates posterior needle tip projecting over the inferior left and right SI joint. Correlate with intraoperative findings/report.
--- NOTE | 2022-01-02 08:57 | XRAY ---
22 seconds fluoroscopy time in surgery for injections of both SI joints.
== END 2022-01-01 17:07 | disposition home or self-care (01) ==
LOC: SDC-PAIN 14:08
PROVIDERS: ATTEND Psychiatry & Neurology Pain Medicine
DX: M46.1 Sacroiliitis, not elsewhere classified (principal); Z79.899 Other long term (current) drug therapy
CPT/HCPCS: 27096; 72202; 77002; J1030; J2704; G0260

== ENCOUNTER 2022-07-30 13:22 | Day surgery (SDC) | payer BC, OTHER ==
[2022-07-30] MEDS ORDERED: Depo-Medrol 40 MG/ML IM ONE (13:23)
[2022-07-30] MEDS ORDERED: Marcaine Mpf 0.5% Vial 30 Ml IJ ONE (13:23)
[2022-07-30] MEDS ORDERED: DIPRIVAN 200 MG/20 ML IV ONE (15:19)
--- NOTE | 2022-07-30 16:54 | XRAY ---
Indication: Bilateral SI joint injection. Intraoperative fluoroscopy provided for 22 seconds. 4 digital spot image submitted for interpretation images demonstrates posterior needle tip projecting over the left and right SI joints. Correlate with intraoperative findings/report.
--- NOTE | 2022-07-30 16:56 | XRAY ---
22 seconds of fluoroscopy was used in surgery for a bilateral sacroiliac joint injection.
[2022-07-30] MEDS ORDERED: Lactated Ringers 1,000 ML IV ONE ×2 (17:39)
== END 2022-07-30 15:40 | disposition home or self-care (01) ==
LOC: SDC-PAIN 13:22
PROVIDERS: ATTEND Psychiatry & Neurology Pain Medicine
DX: M46.1 Sacroiliitis, not elsewhere classified (principal); Z79.899 Other long term (current) drug therapy
CPT/HCPCS: 27096; 72202; 77002; J1030; J2704; G0260

== ENCOUNTER 2022-11-19 10:52 | Day surgery (SDC) | payer BC, OTHER ==
[2022-11-19] MEDS ORDERED: Sodium Chloride 0.9(Preservative Free) 10 ML IJ ONE (10:53)
[2022-11-19] MEDS ORDERED: Depo-Medrol 40 MG/ML IM ONE (10:53)
[2022-11-19] MEDS ORDERED: LIDOCAINE HCL 1% 50 MG/5 ML VL PF IJ ONE (10:53)
[2022-11-19] MEDS ORDERED: Decadron 4 MG INJ IV ONE (10:53)
[2022-11-19] MEDS ORDERED: Lactated Ringers 1,000 ML IV ONE (13:28)
--- NOTE | 2022-11-19 13:56 | XRAY ---
Indication: Right L4-S1 transforaminal ROSARIO. Intraoperative fluoroscopy provided for 25 seconds. 5 digital spot images submitted for interpretation demonstrates posterior needle tips projecting of the expected right L4 and L5 nerve roots. Small amount of contrast injected for needle tip placement. Correlate with intraoperative findings/report.
--- NOTE | 2022-11-19 13:56 | XRAY ---
Indication: Right piriformis injection ROSARIO. Intraoperative fluoroscopy provided for 8 seconds. Single digital spot image submitted for interpretation demonstrates posterior needle tip projecting over the right piriformis. Small amount of contrast injected for needle tip placement. Correlate with intraoperative findings/report.
--- NOTE | 2022-11-19 16:35 | XRAY ---
25 seconds of fluoroscopy was used in surgery for a right L4-S1 transforaminal ROSARIO.
--- NOTE | 2022-11-19 16:35 | XRAY ---
8 seconds of fluoroscopy was used in surgery for a right piriformis muscle injection.
== END 2022-11-19 13:20 | disposition home or self-care (01) ==
LOC: SDC-PAIN 10:52
PROVIDERS: ATTEND Psychiatry & Neurology Pain Medicine
DX: M54.16 Radiculopathy, lumbar region (principal); M79.18 Myalgia, other site; Z79.899 Other long term (current) drug therapy
CPT/HCPCS: 20552; 64483; 64484; 72100; 72170; 77002; 77003; J1030; J1100; J2001; Q9966

== ENCOUNTER 2023-01-21 14:18 | Day surgery (SDC) | payer BC, OTHER ==
[2023-01-21] MEDS ORDERED: BUPIVACAINE 0.5% VIAL IJ ONE (14:19)
[2023-01-21] MEDS ORDERED: Depo-Medrol 40 MG/ML IM ONE (14:19)
[2023-01-21] MEDS ORDERED: DIPRIVAN 200 MG/20 ML IV ONE (15:21)
[2023-01-21] MEDS ORDERED: Lactated Ringers 1,000 ML IV ONE (15:41)
--- NOTE | 2023-01-21 16:39 | XRAY ---
Indication: Left knee injection. Intraoperative fluoroscopy provided for 6 seconds. Single digital spot image submitted for interpretation demonstrates needle tip projecting over the left femur intercondylar notch. Small amount of contrast injected for needle tip placement. Correlate with intraoperative findings/report.
--- NOTE | 2023-01-21 16:40 | XRAY ---
Indication: Right knee injection. Intraoperative fluoroscopy provided for 4 seconds. Single digital spot image submitted for interpretation demonstrates needle tip projecting over the right femur intercondylar notch. Small amount of contrast injected for needle tip placement. Correlate with intraoperative findings/report.
--- NOTE | 2023-01-21 16:43 | XRAY ---
6 seconds of fluoroscopy was used in surgery for a left intra-articular knee injection.
--- NOTE | 2023-01-21 16:44 | XRAY ---
4 seconds of fluoroscopy was used in surgery for a right intra-articular knee injection.
== END 2023-01-21 15:55 | disposition home or self-care (01) ==
LOC: SDC-PAIN 14:18
PROVIDERS: ATTEND Psychiatry & Neurology Pain Medicine
DX: M17.0 Bilateral primary osteoarthritis of knee (principal); Z79.899 Other long term (current) drug therapy
CPT/HCPCS: 20610; 73560; 77002; J1030; J2704; Q9966

== ENCOUNTER 2023-06-24 15:11 | Day surgery (SDC) | payer OTHER ==
[2023-06-24] MEDS ORDERED: SYNVISC 16 MG/2 ML SYRINGE IU ONE (15:12)
[2023-06-24] MEDS ORDERED: DIPRIVAN 200 MG/20 ML IV ONE (16:52)
[2023-06-24] MEDS ORDERED: Lactated Ringers 1,000 ML IV ONE (18:17)
--- NOTE | 2023-06-24 22:49 | XRAY ---
Indication: Left knee injection. Intraoperative fluoroscopy provided 4 seconds. Single digital spot image submitted for interpretation demonstrates needle tip projecting over left femur intercondylar notch. Small amount of contrast injected for needle tip placement. Correlate with intraoperative findings/report.
--- NOTE | 2023-06-24 22:51 | XRAY ---
Indication: Right knee injection. Intraoperative fluoroscopy provided 4 seconds. Single digital spot image submitted for interpretation demonstrates needle tip projecting over right femur intercondylar notch. Small amount of contrast injected for needle tip placement. Correlate with intraoperative findings/report.
--- NOTE | 2023-06-25 09:07 | XRAY ---
4 seconds of fluoroscopy was used in surgery for a right intra-articular knee injection.
--- NOTE | 2023-06-25 09:07 | XRAY ---
4 seconds of fluoroscopy was used in surgery for a left intra-articular knee injection.
== END 2023-06-24 17:22 | disposition home or self-care (01) ==
LOC: SDC-PAIN 15:11
PROVIDERS: ATTEND Psychiatry & Neurology Pain Medicine
DX: M17.0 Bilateral primary osteoarthritis of knee (principal); Z79.899 Other long term (current) drug therapy
CPT/HCPCS: 20610; 73560; 77002; J2704; J7325; Q9966

== ENCOUNTER 2023-07-08 15:08 | Day surgery (SDC) | payer OTHER ==
[2023-07-08] MEDS ORDERED: SYNVISC 16 MG/2 ML SYRINGE IU ONE (15:09)
[2023-07-08] MEDS ORDERED: DIPRIVAN 200 MG/20 ML IV ONE ×2 (16:08→16:19)
[2023-07-08] MEDS ORDERED: Lactated Ringers 1,000 ML IV ONE (16:48)
--- NOTE | 2023-07-08 18:41 | XRAY ---
Indication: Left knee injection. Intraoperative fluoroscopy provided for1 second. Single digital spot image submitted for interpretation demonstrates needle tip projecting over the left femur intercondylar notch. Small amount of contrast injected for needle tip placement. Correlate with intraoperative findings/report.
--- NOTE | 2023-07-08 18:41 | XRAY ---
Indication: Left knee injection. Intraoperative fluoroscopy provided for 4 right second. Single digital spot image submitted for interpretation demonstrates needle tip projecting over the right femur intercondylar notch. Small amount of contrast injected for needle tip placement. Correlate with intraoperative findings/report.
--- NOTE | 2023-07-09 08:42 | XRAY ---
4 seconds of fluoroscopy was used in surgery for a right intra-articular knee injection.
--- NOTE | 2023-07-09 08:42 | XRAY ---
1 second of fluoroscopy was used in surgery for a left intra-articular knee injection.
== END 2023-07-08 16:51 | disposition home or self-care (01) ==
LOC: SDC-PAIN 15:08
PROVIDERS: ATTEND Psychiatry & Neurology Pain Medicine
DX: M17.0 Bilateral primary osteoarthritis of knee (principal)
CPT/HCPCS: 20610; 73560; 77002; J2704; J7325; Q9966